=== PATIENT | male | born 1960 | race Caucasian/White ===

== ENCOUNTER 2018-12-21 06:22 | Inpatient (IN) | payer OTHER ==
[~2018-12-21] VITALS: Ht 177.8 cm; Wt 120.0 kg
[~2018-12-21 06:22] MED LIST: ASPI-496 PO; ATOR10TA9 PO; GLIP5TAB10 PO; LIRA0.6P INJ; ZOLP10TA PO
[2018-12-21] MEDS ORDERED: LACTATED RINGERS 1,000 ML IV SCH (07:22)
[2018-12-21] MEDS ORDERED: ACETAMINOPHEN 100 ML IVPB ONE (08:00)
[2018-12-21] MEDS ORDERED: SCOPOLAMINE PATCH, 1.5MG PATCH.TD72 TD ONE (08:00)
[2018-12-21 08:08] LABS: CHOL/HDL RATIO 4.5; LDL/HDL RATIO 2.6 (0.5-3.0)
[2018-12-21] MEDS ORDERED: EPINEPHRINE 1 MG/ML, 1ML ONE (08:17)
[2018-12-21] MEDS ORDERED: BUPIVACAINE/PF 0.5% ONE (08:17)
[2018-12-21] MEDS ORDERED: FENTANYL PF 250 MCG/5ML ONE (08:26)
[2018-12-21] MEDS ORDERED: MIDAZOLAM 1 MG/ML, 2ML ONE (08:26)
[2018-12-21] MEDS ORDERED: GLYCOPYRROLATE 0.2MG/1ML, 5ML ONE (08:28)
[2018-12-21] MEDS ORDERED: DEXAMETHASONE 4 MG/ML, 1ML ONE (08:28)
[2018-12-21] MEDS ORDERED: PROPOFOL 10 MG/ML, 20ML ONE (08:28)
[2018-12-21] MEDS ORDERED: CEFAZOLIN 1,000 MG ONE (08:28)
[2018-12-21] MEDS ORDERED: NEOSTIGMINE 1 MG/ML, 10ML ONE (08:28)
[2018-12-21] MEDS ORDERED: ROCURONIUM 10MG/ML,5ML ONE (08:28)
[2018-12-21] MEDS ORDERED: ONDANSETRON 2MG/ML, 2ML ONE (08:28)
[2018-12-21] MEDS ORDERED: MEPERIDINE/PF 25MG/ML,1ML IVPush PRN (09:00)
[2018-12-21] MEDS ORDERED: PROMETHAZINE 25 MG/ML, 1ML IV PRN (09:00)
[2018-12-21] MEDS ORDERED: HALOPERIDOL 5 MG/ML IV PRN (09:00)
[2018-12-21] MEDS ORDERED: OXYcodone 5 MG/5 ML ORAL.SOL UDC PO PRN (09:00)
[2018-12-21] MEDS ORDERED: HYDROmorphone 2 MG/ML, 1ML IVPush PRN (09:00)
[2018-12-21] MEDS ORDERED: MORPHINE SULFATE 4 MG/ML, 1ML IVPush PRN (09:00)
[2018-12-21] MEDS ORDERED: LABETALOL 5MG/ML, 20ML IV PRN (09:00)
[2018-12-21] MEDS ORDERED: hydrALAzine 20 MG/ML, 1ML IV PRN (09:00)
[2018-12-21] MEDS ORDERED: FENTANYL PF 100 MCG/2ML ONE (10:20)
[2018-12-21] MEDS: FENTANYL PF 100 MCG/2ML IV PRN ×3 (10:22→10:50)
[2018-12-21] MEDS ORDERED: PROMETHAZINE 12.5 MG SUPP PR PRN (10:30)
[2018-12-21] MEDS ORDERED: PROMETHAZINE 25 MG/ML, 1ML IM PRN (10:30)
[2018-12-21] MEDS ORDERED: ONDANSETRON 2MG/ML, 2ML IVPush PRN (10:30)
[2018-12-21] MEDS ORDERED: DIPHENHYDRAMINE 50 MG/ML, 1ML IV PRN (10:30)
[2018-12-21] MEDS ORDERED: hydrALAzine 20 MG/ML, 1ML IVPush PRN (10:30)
[2018-12-21] MEDS ORDERED: LORazepam 2 MG/ML, 1ML IV PRN (10:30)
[2018-12-21] MEDS ORDERED: PHENOL THROAT SPRAY BOTTLE MM PRN (10:30)
[2018-12-21] MEDS ORDERED: ENALAPRILAT 1.25 MG/ML, 2ML IV PRN (10:30)
[2018-12-21] MEDS ORDERED: HYDROmorphone 1 MG/ML, 1ML VIAL ONE (10:55)
[2018-12-21 11:30] VITALS: BP 136/78
[2018-12-21] MEDS: LACTATED RINGERS 1,000 ML IV SCH ×2 (11:52→17:29)
[2018-12-21] MEDS: FAMOTIDINE 20 MG/2 ML IVPush SCH ×2 (11:52→20:50)
[2018-12-21] MEDS: INSULIN REGULAR 100 UNITS/ML, 3ML VIAL SQ-INSULIN SCH ×3 (12:30→20:50)
[2018-12-21 12:45] VITALS: BP 143/77
[2018-12-21] MEDS: ACETAMINOPHEN 100 ML IVPB PRN (15:07)
[2018-12-21] MEDS ORDERED: HYDROcodone/APAP 7.5-325MG/15ML UDC PO PRN (18:00)
[2018-12-21 18:33] VITALS: BP 150/71
[2018-12-22] MEDS: ACETAMINOPHEN 100 ML IVPB PRN (00:35)
[2018-12-22] MEDS: LACTATED RINGERS 1,000 ML IV SCH ×2 (00:36→07:05)
[2018-12-22 04:51] VITALS: BP 161/69
[2018-12-22 05:08] LABS: BASOPHILS # (AUTO) 0.02 x10^3/uL (0-0.1); BASOPHILS % (AUTO) 0 % (0-1); EOSINOPHILS # (AUTO) 0.06 x10^3/uL (0-0.4); EOSINOPHILS % (AUTO) 1 % (1-7); LYMPHOCYTES # (AUTO) 1.48 x10^3/uL (1-3.4); LYMPHOCYTES % (AUTO) 16 % (22-44); MD NO; MEAN CORPUSCULAR HEMOGLOBIN 28.5 pg (27.5-34.5); MEAN CORPUSCULAR HGB CONC 32.5 g/dL (33.2-36.2); MEAN CORPUSCULAR VOLUME 87.8 fL (81-97); MEAN PLATELET VOLUME 8.3 fL (7.4-10.4); MONOCYTES # (AUTO) 0.96 x10^3/uL (0.2-0.8); MONOCYTES % (AUTO) 10 % (2-9); NEUTROPHILS % (AUTO) 73 % (42-75); PLATELET COUNT 184 x10^3/uL (130-400); RED BLOOD COUNT 4.88 x10^6/uL (4.38-5.82); RED CELL DISTRIBUTION WIDTH 13.9 % (9.4-14.8)
[2018-12-22 05:17] LABS: ALBUMIN 3.8 g/dL (3.4-5.0); ANION GAP 6 mmol/L (5-15); CALCIUM 8.3 mg/dL (8.5-10.1); CHLORIDE 103 mmol/L (98-107); CREATININE 0.87 mg/dL (0.7-1.3)
[2018-12-22 06:58] VITALS: BP 149/72
[2018-12-22] MEDS: INSULIN REGULAR 100 UNITS/ML, 3ML VIAL SQ-INSULIN SCH (07:00)
[2018-12-22] MEDS: FAMOTIDINE 20 MG/2 ML IVPush SCH (08:49)
[2018-12-22] MEDS ORDERED: ENOXAPARIN 40 MG/0.4 ML SQ SCH (09:00)
[2018-12-22] MEDS ORDERED: HYDR15SO3 PO (09:28)
== END 2018-12-22 10:12 | disposition home or self-care (01) | DRG 621 ==
LOC: ORIP 06:22 → 4NE 11:20 → DCLOUNGE 12-22 10:00
PROVIDERS: ADMIT Thoracic Surgery (Cardiothoracic Vascular Surgery); ATTEND Thoracic Surgery (Cardiothoracic Vascular Surgery)
PROC: 0DB64Z3 Excision of Stomach, Percutaneous Endoscopic Approach, Vertical (ICD-10-PCS; principal; 2018-12-21 09:00)
DX: E66.01 Morbid (severe) obesity due to excess calories (principal); E11.9 Type 2 diabetes mellitus without complications; G47.30 Sleep apnea, unspecified; G89.29 Other chronic pain; E78.00 Pure hypercholesterolemia, unspecified; Z80.1 Family history of malignant neoplasm of trachea, bronchus and lung; Z83.3 Family history of diabetes mellitus; Z87.891 Personal history of nicotine dependence; Z68.38 Body mass index [BMI] 38.0-38.9, adult
CPT/HCPCS: 36415; J3490; S0020; 80048; 80061; 82040; 82962; 85025; G0378; J0131; J0171; J0690; J1100; J1170; J1650; J1815; J2250; J2405; J2704; J2710; J3010; J7120